=== PATIENT | male | born 1960 | race Caucasian/White ===

== ENCOUNTER 2025-08-28 09:08 | Emergency (ER) | payer OTHER, SELFPAY ==
[2025-08-28 09:20] VITALS: BP 136/87; PULSE 63; RESP 18; TEMP 36.2; O2SAT 99
[2025-08-28 09:48] LABS: EDINFLUASCREEN Negative (Negative); EDINFLUBSCREEN Negative (Negative)
[2025-08-28 09:48] LABS: EDCOVIDSCREEN Negative (Negative)
--- NOTE | 2025-08-28 09:50 | ED_ITS ---
HPI - URI/Sore Throat General Chief Complaint: Upper Respiratory Infection Stated Complaint: Upper Respiratory Infection patient presents to the [facility] with complaints of sinus pain, nasal congestion, nasal drainage, headache, fatigue, cough and chest congestion that began 4-5 days ago. Patient noted today feeling significantly worse. Patient reports yesterday began taking a congestion nasal spray which did help and has been using other [id number] cough cold medication. no known sick contacts. Denies fever, chills, body aches, dizziness, shortness of breath, nausea, vomiting, diarrhea. Related Data Home Medications ?Medication ?Instructions ?Recorded ?Confirmed ?Last Taken ?Type esomeprazole magnesium 40 mg mg 08/28/25 Unknown Hist ory capsule,delayed release ezetimibe 10 mg tablet mg 08/28/25 Unknown History metoprolol succinate 25 mg mg PO 08/28/25 Unknown His tory tablet,extended release 24 hr nitroglycerin 0.4 mg sublingual mg 08/28/25 Unknown H istory tablet rosuvastatin 40 mg tablet mg 08/28/25 Unknown History tadalafil 5 mg tablet mg 08/28/25 Unknown History vardenafil 10 mg tablet mg 08/28/25 Unknown History Allergies Allergy/AdvReac Type Severity Reaction Status Date / Time No Known Allergies Allergy Verified 08/28/25 09:18 Review of Systems Constitutional: Constitutional: Reports as per HPI, Denies chills, Reports fatigue, Denies fever(s) and Denies weakness Eyes: Eyes: Reports no additional eye complaints ENT: Reports as per HPI, Denies vertigo, Denies dizziness, Reports nasal congestion and Reports sore throat Comments: Sinus pain Cardiovascular: Cardiovascular: Reports no additional cardiovascular complaints Respiratory: Respiratory: Reports as per HPI, Reports chest congestion, Reports cough, Denies dyspnea and Denies wheezing Gastrointestinal: Gastrointestinal: Reports no additional gastrointestinal complaints Genitourinary: Genitourinary: Reports no additional male genitourinary complaints Musculoskeletal: Musculoskeletal: Reports no additional musculoskeletal complaints Integumentary/Breasts: Skin/Breast: Reports as per HPI, Denies erythema and Denies rash Neurologic: Reports as per HPI, Denies vertigo, Denies dizziness, Reports headache(s) and Denies weakness Psychiatric: Psychiatric: Reports no additional psychiatric complaints Endocrine: Endocrine: Reports no additional endocrine complaints Hematologic/Lymphatic: Hematologic/Lymphatic: Reports no additional hematologic/lymphatic complaints Allergic/Immunologic: Allergic/Immunologic: Reports as per HPI Comments: seasonal allergies Exam Const: General: healthy appearing and no acute distress Nutritional Appearance: well nourished Orientation/consciousness: patient oriented x3 Limitations: no limitations HENMT: Ears: external ears normal Face/Nose/Sinus: Normal external nose present, Normal nares present and Nasal discharge present Face and sinus: normal facial exam and sinus tenderness frontal and maxillary Mouth: Yes Normal oral and palatal mucosa present, Yes lip normal and Yes moist mucous membranes Throat: posterior oropharynx abnormal ( mild erythema with no edema or exudate) Neck: Neck: normal visual inspection and no lymphadenopathy Resp: Effort & Inspection: normal respiratory effort Auscultation: clear to auscultation bilaterally Other: cough noted Cardio: Rate: regular rate Rhythm: regular rhythm Skin: General skin exam: normal color Rashes: no rashes Wounds: no wounds Neuro: General: patient oriented x3 Speech: normal speech Gait exam (Neuro): Normal gait present Psych: Mental Status: mental status grossly normal Affect: normal affect Attitude: cooperative Course Course Level of Care: Express Care Visit Vital Signs Vital signs: Vital Signs Temperature 97.1 F L 08/28/25 09:20 Pulse Rate 63 08/28/25 09:20 Respiratory Rate 18 08/28/25 09:20 Blood Pressure 136/87 08/28/25 09:20 Pulse Oximetry 99 08/28/25 09:20 Oxygen Delivery Room Air 08/28/25 09:20 Temperature 97.1 F L 08/28/25 09:20 Pulse Rate 63 08/28/25 09:20 Respiratory Rate 18 08/28/25 09:20 Blood Pressure 136/87 08/28/25 09:20 Pulse Oximetry 99 08/28/25 09:20 Oxygen Delivery Room Air 08/28/25 09:20 [facility] MDM Narrative Medical decision making narrative: flu, COVID negative. The patient was evaluated by myself in the express care. History is obtained from patient who is an independent historian and physical exam was performed. Available medical records were reviewed at this time. Exam findings show no acute concerns or changes; patient is non-toxic appearing and is in no distress. Patient is appropriate for outpatient treatment and follow-up. I have evaluated and discussed social determinants of health with the patient that could potentially impact subsequent diagnosis and treatment plans. Differential diagnosis and treatment plan were discussed with the patient. Patient agrees with discussion and after shared medical decision making agrees with plan of care. All questions were answered to the patient's satisfaction. Differential Diagnosis Differential Diagnosis: Sinusitis, upper respiratory infection, strep, COVID, bronchitis Medical Records I have reviewed the following patient records and this information was taken into consideration when formulating the assessment and plan.: previous labs, previous ER visits, previous hospitalizations and previous clinic visits Lab Data MDM Lab Attestation statement: I personally reviewed the patient's lab results. Labs: Lab Results 08/28/25 08/28/25 Range/Units 09:46 09:47 POC Influenza A Ag Negative (Negative) POC Influenza B Ag Negative (Negative) POC SARS CoV-2 Ag Negative (Negative) Discharge Plan Discharge Clinical Impression: Sinusitis Patient Disposition: Home Condition: Stable Instructions: Antibiotic Form, Sinusitis (ED) Additional Instructions: Viral illness may last between 7-12days; antibiotic is NOT recommended at this time. if you begin to feel worse over the next day or 2 you may start the antibiotic and take this until it is gone Recommend antihistamine such as Benadryl at night time and Claritin/Zyrtec/Kelley during the day. Also using steroid nasal spray like Flonase can help with symptoms and congestion. Using sudafed for significant congestion will also give some relief. Cough syrup may cause drowsiness; avoid driving or take it at night time. Use inhaler as needed for cough, wheezing, shortness of breath or chest tightness. Also, recommend symptomatic treatment includes: rest, fluids, increase humidity of the air at home. Recommend Acetaminophen or nonsteroidal anti-inflammatory agents(NSAIDs) as directed in the bottle to reduce fever and/pain/headache. Avoid smoking/second-hand smoke. Limit visits to areas with large crowds. Frequent hand washing or hand toddler lead teacher is one of the best ways to prevent spread of infection. Please schedule a followup visit with your personal physician for further evaluation and treatment within 3-5days. Including recheck and discussion of your blood pressure. If your symptoms persist, change or worsen significantly before you can contact your personal physician then please, without delay, go to the emergency department for further evaluation. Patient Language: Romanian Prescriptions: New amoxicillin-pot clavulanate 875-125 mg tablet 1 tablet PO Q12H Qty: 20 0RF No Action esomeprazole magnesium 40 mg capsule,delayed release(DR/EC) nitroglycerin 0.4 mg tablet, sublingual metoprolol succinate 25 mg tablet extended release 24 hr PO ezetimibe 10 mg tablet rosuvastatin 40 mg tablet vardenafil 10 mg tablet tadalafil 5 mg tablet Follow-up/Referrals: Ninfa,Kristian [Other] Time of Disposition: 09:52
== END 2025-08-28 09:54 | disposition home or self-care (01) ==
PROVIDERS: Emergency Provider Nurse Practitioner Family
DX: J32.9 Chronic sinusitis, unspecified (principal)
CPT/HCPCS: 87426; 87804; 99213; G0463